=== PATIENT | female | born 1990 | race Caucasian/White ===

== ENCOUNTER 2016-07-23 15:17 | Emergency (ER) | payer BC, OTHER ==
[~2016-07-23 15:17] MED LIST: IBUP80TA PO; PERCOCET PO; VITAPRTA PO
--- NOTE | 2016-07-23 16:05 | REP ---
Left shoulder three views: There is no fracture or dislocation. Mineralization joint spaces are normal. No calcifications or foreign bodies. Clothing artifacts are incidentally noted. Impression: Negative left shoulder. Signed by Willy Colorado MD 07/23/2016 03:57 P
--- NOTE | 2016-07-23 16:08 | REP ---
Left humerus two views : There is no fracture or dislocation. Mineralization and joint spaces are normal. There are no calcifications or foreign bodies. Impression: Negative left humerus . Signed by Willy Colorado MD 07/23/2016 03:58 P
--- NOTE | 2016-07-23 17:07 | EDDOCDS ---
Nurse's Notes [facility] Name: Areli Lynch Age: 25 yrs Sex: Female : 1990 Arrival Date: 07/23/2016 Time: 15:17 Bed 30 Private MD: Ana Rm Diagnosis: Contusion of left shoulder Presentation: 07/23 15:32 Presenting complaint: Patient states: Pt fell this morning on the ice and hurt her left lf1 shoulder. Pain is currently 7/10. Pt. is able to move her arm but reports increased pain with movement. Positive radial pulse. No LOC, no head injury. Adult Sepsis Screening: The patient does not have new or worsening altered mentation. Patient's respiratory rate is less than 22. Systolic blood pressure is greater than 100. Patient has a qSOFA score of 0- Negative Sepsis Screen. Suicide/Homicide risk assessment- the patient denies having any suicidal and/or homicidal ideations and does not present with any other emotional, behavioral or mental health complaints. Status: Patient is not a online services manager or dependent. Transition of care: patient was not received from another setting of care. 15:32 Acuity: NICHELLE Level 4 lf1 15:32 Method Of Arrival: Walkin/Carried/Asstd lf1 Triage Assessment: 15:36 General: Appears in no apparent distress, comfortable, Behavior is cooperative. Pain: lf1 Location: left arm and shoulder Pain currently is 7 out of 10 on a pain scale. Quality of pain is described as burning. HIV screening NA for this visit Offered previously. Neurological: Level of Consciousness is awake, alert, Oriented to person, place, time. EENT: No deficits noted. Cardiovascular: Chest pain is denied. Respiratory: Respiratory effort is even, unlabored. GI: Denies nausea, vomiting. : No deficits noted. Musculoskeletal: Reports pain in left shoulder and arm. Injury Description: pt fell. 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 Tylenol 500 mg Oral 2 tabs (Last dose: 07/23/2016 14:00) - PMHx: none; - PSHx: Cesearean Section; - Social history: Smoking status: Patient states was never smoker of tobacco. No barriers to communication noted, The patient speaks fluent Malawian, Speaks appropriately for age, Preferred Language: Malawian. - Family history: Not pertinent. - : The pt / caregiver states he / she is not on anticoagulants. Home medication list is obtained from the patient. - Exposure Risk Screening:: None identified. Screenin:38 Screening information is obtained from the patient. Fall risk: No risks identified. lf1 Assistance ADL's: requires no assistance with activities of daily living. Abuse/DV Screen: The patient / caregiver reports he/she is: not in a situation that causes fear, pain or injury. Nutritional screening: No deficits noted. Advance Directives: Currently, there is no health care proxy. There is no active DNR order. There is no living will. home support is adequate. Assessment: 17:06 General: Appears in no apparent distress, comfortable, Behavior is cooperative. kr3 Neurological: Level of Consciousness is awake, alert. Respiratory: Respiratory effort is even, unlabored. Musculoskeletal: Range of motion limited in left shoulder. Vital Signs: 15:18 BP 127 / 76; Pulse 80; Resp 16; Temp 97.1(O); Pulse Ox 100% ; Weight 61.23 kg; Height 5 cmb ft. 1 in. (154.94 cm); Pain 7/10; 17:04 BP 113 / 59; Pulse 68; Resp 18; Temp 99.1(TE); Pulse Ox 97% on R/A; Pain 7/10; mdr 15:18 Body Mass Index 25.51 (61.23 kg, 154.94 cm) cmb Vitals: 15:18 Log In Time: July 23, 2016 at 15:17. cmb ED Course: 15:18 Patient visited by Dimple Leslie. cmb 15:18 NO PRIMARY PHYSICIAN, . is Private Physician. cmb 15:18 Ana Rm is Private Physician. cmb 15:18 Patient moved to Waiting cmb 15:19 Patient moved to Pre RCE cmb 15:35 Triage Initiated lf1 16:39 Patient moved to 30 kr3 16:40 Taylor Prince MD is Attending Physician. sd1 16:40 Patient visited by Taylor Prince MD. sd1 16:44 Shoulder, Complete Returned. EDMS 16:44 Humerus Returned. EDMS 16:46 Ana Rm is Referral Physician. sd1 17:05 Patient visited by Samson Dinero PCA. mdr 17:05 The patient / caregiver is instructed regarding the plan of care and ED course. Patient kr3 has correct armband on for positive identification. 17:05 No IV's were initiated during this patient's visit. No procedures done that require kr3 assistance. Sling applied to left arm. Patient with positive distal sensation and brisk distal capillary refill after application. Order Results: Radiology Order: Shoulder, Complete Test: Shoulder, Complete REASON FOR EXAMINATION: Trauma; Left shoulder three views:; ; There is no fracture or dislocation. Mineralization joint spaces are normal. No; calcifications or foreign bodies. Clothing artifacts are incidentally noted.; ; Impression:; ; Negative left shoulder.; ; ; Signed by; Willy Colorado MD 07/23/2016 03:57 P; Radiology Order: Humerus Test: Humerus REASON FOR EXAMINATION: Trauma; Left humerus two views :; ; There is no fracture or dislocation.; ; Mineralization and joint spaces are normal.; ; There are no calcifications or foreign bodies.; ; Impression:; ; Negative left humerus .; ; ; Signed by; Willy Colorado MD 07/23/2016 03:58 P; Outcome: 16:46 Discharge ordered by Provider. sd1 17:05 Discharge Assessment: patient administered narcotics - no. The following High Risk kr3 Discharge criteria are identified: None. Discharged to home ambulatory. Condition: stable. Discharge instructions given to patient, Instructed on discharge instructions, follow up and referral plans. Demonstrated understanding of instructions, Pt was receptive of discharge instructions/ teaching. No special radiology studies were completed. Property sent home with patient. 17:06 Patient left the ED. kr3 Signatures: Dispatcher [employer] EDMS Taylor Prince MD MD sd1 Lianne MeloRN RN kr3 Edel Motley RN RN lf1 Dimple Leslie cmb Samson Dinero PCA APPLICATION DESIGN ENGINEER mdr Corrections: (The following items were deleted from the chart) 15:38 15:32 Presenting complaint: Patient states: Pt fell this morning on the ice and hurt lf1 her left shoulder. Pain is currently 7/10. Pt. is able to move her arm but reports increased pain with movement. Positive radial pulse lf1 MTDD
--- NOTE | 2016-07-23 17:07 | EDDOCDS ---
Physician Documentation [facility] Name: Areli Lynch Age: 25 yrs Sex: Female : 1990 Arrival Date: 07/23/2016 Time: 15:17 Bed 30 Private MD: Ana Rm Disposition: 07/23/16 16:46 Discharged to Home/Self Care. Impression: Contusion of left shoulder. - Condition is Stable. - Discharge Instructions: Shoulder Pain, Shoulder Pain, [id number]. - Medication Reconciliation, Local Pharmacy Hours form. - Follow up: Ana Rm; When: 1 week. - Problem is new. - Symptoms are unchanged. - Notes: ROM exercises of left shoulder Historical: - Allergies: Ceftin (Hives, Swelling); Trimox (Hives, Swelling); PENICILLINS (Hives, Swelling); - Home Meds: 1. Tylenol 500 mg Oral 2 tabs (Last dose: 07/23/2016 14:00) - PMHx: none; - PSHx: Cesearean Section; - Social history: Smoking status: Patient states was never smoker of tobacco. No barriers to communication noted, The patient speaks fluent Russian, Speaks appropriately for age, Preferred Language: Russian. - Family history: Not pertinent. - : The pt / caregiver states he / she is not on anticoagulants. Home medication list is obtained from the patient. - Exposure Risk Screening:: None identified. 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 1 in. (154.94 cm); Pain 7/10; 17:04 BP 113 / 59; Pulse 68; Resp 18; Temp 99.1(TE); Pulse Ox 97% on R/A; Pain 7/10; mdr 15:18 Body Mass Index 25.51 (61.23 kg, 154.94 cm) cmb MDM: 15:44 Shoulder, Complete Ordered. EDMS 15:44 Humerus Ordered. EDMS 16:45 Sling ordered. sd1 Signatures: Dispatcher [employer] EDTaylor Andrews MD MD sd1 Lianne Melo,RN RN kr3 Edel Motley RN RN lf1 VINAYD
--- NOTE | 2016-07-25 18:07 | EDDOCDS ---
Physician Documentation [facility] Name: Areli Lynch Age: 25 yrs Sex: Female : 1990 Arrival Date: 07/23/2016 Time: 15:17 Bed 30 Private MD: Ana Rm Disposition: 07/23/16 16:46 Discharged to Home/Self Care. Impression: Contusion of left shoulder. - Condition is Stable. - Discharge Instructions: Shoulder Pain, Shoulder Pain, [id number]. - Medication Reconciliation, Local Pharmacy Hours form. - Follow up: Ana Rm; When: 1 week. - Problem is new. - Symptoms are unchanged. - Notes: ROM exercises of left shoulder Historical: - Allergies: Ceftin (Hives, Swelling); Trimox (Hives, Swelling); PENICILLINS (Hives, Swelling); - Home Meds: 1. Tylenol 500 mg Oral 2 tabs (Last dose: 07/23/2016 14:00) - PMHx: none; - PSHx: Cesearean Section; - Social history: Smoking status: Patient states was never smoker of tobacco. No barriers to communication noted, The patient speaks fluent Swazi, Speaks appropriately for age, Preferred Language: Swazi. - Family history: Not pertinent. - : The pt / caregiver states he / she is not on anticoagulants. Home medication list is obtained from the patient. - Exposure Risk Screening:: None identified. 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 1 in. (154.94 cm); Pain 7/10; 17:04 BP 113 / 59; Pulse 68; Resp 18; Temp 99.1(TE); Pulse Ox 97% on R/A; Pain 7/10; mdr 15:18 Body Mass Index 25.51 (61.23 kg, 154.94 cm) cmb MDM: 15:44 Shoulder, Complete Ordered. EDMS 15:44 Humerus Ordered. EDMS 16:45 Sling ordered. sd1 07/24 10:31 T-Sheet-- Draft Copy was scanned into [employer] and attached to record. gb Signatures: Dispatcher [employer] Taylor Faria MD MD sd1 Danyelle Rey Reg Reg gb Robie, Kathleen,RN RN kr3 Edel MotleyRN RN lf1 The chart was reviewed and I authenticate all verbal orders and agree with the evaluation and treatment provided.Attachments: 10:31 T-Sheet-- Draft Copy gb Chart Complete MTDD
--- NOTE | 2016-07-25 18:07 | EDDOCDS ---
Physician Documentation [facility] Name: Areli Lynch Age: 25 yrs Sex: Female : 1990 Arrival Date: 07/23/2016 Time: 15:17 Bed 30 Private MD: Ana Rm Disposition: 07/23/16 16:46 Discharged to Home/Self Care. Impression: Contusion of left shoulder. - Condition is Stable. - Discharge Instructions: Shoulder Pain, Shoulder Pain, [id number]. - Medication Reconciliation, Local Pharmacy Hours form. - Follow up: Ana Rm; When: 1 week. - Problem is new. - Symptoms are unchanged. - Notes: ROM exercises of left shoulder Historical: - Allergies: Ceftin (Hives, Swelling); Trimox (Hives, Swelling); PENICILLINS (Hives, Swelling); - Home Meds: 1. Tylenol 500 mg Oral 2 tabs (Last dose: 07/23/2016 14:00) - PMHx: none; - PSHx: Cesearean Section; - Social history: Smoking status: Patient states was never smoker of tobacco. No barriers to communication noted, The patient speaks fluent Brazilian, Speaks appropriately for age, Preferred Language: Brazilian. - Family history: Not pertinent. - : The pt / caregiver states he / she is not on anticoagulants. Home medication list is obtained from the patient. - Exposure Risk Screening:: None identified. 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 1 in. (154.94 cm); Pain 7/10; 17:04 BP 113 / 59; Pulse 68; Resp 18; Temp 99.1(TE); Pulse Ox 97% on R/A; Pain 7/10; mdr 15:18 Body Mass Index 25.51 (61.23 kg, 154.94 cm) cmb MDM: 15:44 Shoulder, Complete Ordered. EDMS 15:44 Humerus Ordered. EDMS 16:45 Sling ordered. sd1 07/24 10:31 T-Sheet-- Draft Copy was scanned into [employer] and attached to record. gb Signatures: Dispatcher [employer] Taylor Faria MD MD sd1 Danyelle Rey Reg Reg gb Robie, Kathleen,RN RN kr3 Edel MotleyRN RN lf1 The chart was reviewed and I authenticate all verbal orders and agree with the evaluation and treatment provided.Attachments: 10:31 T-Sheet-- Draft Copy gb Chart Complete MTDD
--- NOTE | 2016-07-25 18:08 | EDDOCDS ---
Nurse's Notes [facility] Name: Areli Lynch Age: 25 yrs Sex: Female : 1990 Arrival Date: 07/23/2016 Time: 15:17 Bed 30 Private MD: Ana Rm Diagnosis: Contusion of left shoulder Presentation: 07/23 15:32 Presenting complaint: Patient states: Pt fell this morning on the ice and hurt her left lf1 shoulder. Pain is currently 7/10. Pt. is able to move her arm but reports increased pain with movement. Positive radial pulse. No LOC, no head injury. Adult Sepsis Screening: The patient does not have new or worsening altered mentation. Patient's respiratory rate is less than 22. Systolic blood pressure is greater than 100. Patient has a qSOFA score of 0- Negative Sepsis Screen. Suicide/Homicide risk assessment- the patient denies having any suicidal and/or homicidal ideations and does not present with any other emotional, behavioral or mental health complaints. Status: Patient is not a answering service operator or dependent. Transition of care: patient was not received from another setting of care. 15:32 Acuity: NICHELLE Level 4 lf1 15:32 Method Of Arrival: Walkin/Carried/Asstd lf1 Triage Assessment: 15:36 General: Appears in no apparent distress, comfortable, Behavior is cooperative. Pain: lf1 Location: left arm and shoulder Pain currently is 7 out of 10 on a pain scale. Quality of pain is described as burning. HIV screening NA for this visit Offered previously. Neurological: Level of Consciousness is awake, alert, Oriented to person, place, time. EENT: No deficits noted. Cardiovascular: Chest pain is denied. Respiratory: Respiratory effort is even, unlabored. GI: Denies nausea, vomiting. : No deficits noted. Musculoskeletal: Reports pain in left shoulder and arm. Injury Description: pt fell. 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 Tylenol 500 mg Oral 2 tabs (Last dose: 07/23/2016 14:00) - PMHx: none; - PSHx: Cesearean Section; - Social history: Smoking status: Patient states was never smoker of tobacco. No barriers to communication noted, The patient speaks fluent Cook Islander, Speaks appropriately for age, Preferred Language: Cook Islander. - Family history: Not pertinent. - : The pt / caregiver states he / she is not on anticoagulants. Home medication list is obtained from the patient. - Exposure Risk Screening:: None identified. Screenin:38 Screening information is obtained from the patient. Fall risk: No risks identified. lf1 Assistance ADL's: requires no assistance with activities of daily living. Abuse/DV Screen: The patient / caregiver reports he/she is: not in a situation that causes fear, pain or injury. Nutritional screening: No deficits noted. Advance Directives: Currently, there is no health care proxy. There is no active DNR order. There is no living will. home support is adequate. Assessment: 17:06 General: Appears in no apparent distress, comfortable, Behavior is cooperative. kr3 Neurological: Level of Consciousness is awake, alert. Respiratory: Respiratory effort is even, unlabored. Musculoskeletal: Range of motion limited in left shoulder. Vital Signs: 15:18 BP 127 / 76; Pulse 80; Resp 16; Temp 97.1(O); Pulse Ox 100% ; Weight 61.23 kg; Height 5 cmb ft. 1 in. (154.94 cm); Pain 7/10; 17:04 BP 113 / 59; Pulse 68; Resp 18; Temp 99.1(TE); Pulse Ox 97% on R/A; Pain 7/10; mdr 15:18 Body Mass Index 25.51 (61.23 kg, 154.94 cm) cmb Vitals: 15:18 Log In Time: July 23, 2016 at 15:17. cmb ED Course: 15:18 Patient visited by Dimple Leslie. cmb 15:18 NO PRIMARY PHYSICIAN, . is Private Physician. cmb 15:18 Ana Rm is Private Physician. cmb 15:18 Patient moved to Waiting cmb 15:19 Patient moved to Pre RCE cmb 15:35 Triage Initiated lf1 16:39 Patient moved to 30 kr3 16:40 Taylor Prince MD is Attending Physician. sd1 16:40 Patient visited by Taylor Prince MD. sd1 16:44 Shoulder, Complete Returned. EDMS 16:44 Humerus Returned. EDMS 16:46 Ana Rm is Referral Physician. sd1 17:05 Patient visited by Samson Dinero PCA. mdr 17:05 The patient / caregiver is instructed regarding the plan of care and ED course. Patient arely has correct armband on for positive identification. 17:05 No IV's were initiated during this patient's visit. No procedures done that require kr3 assistance. Sling applied to left arm. Patient with positive distal sensation and brisk distal capillary refill after application. 07/24 10:31 T-Sheet-- Draft Copy was scanned into [employer] and attached to record. gb Order Results: Radiology Order: Shoulder, Complete Test: Shoulder, Complete REASON FOR EXAMINATION: Trauma; Left shoulder three views:; ; There is no fracture or dislocation. Mineralization joint spaces are normal. No; calcifications or foreign bodies. Clothing artifacts are incidentally noted.; ; Impression:; ; Negative left shoulder.; ; ; Signed by; Willy Colorado MD 07/23/2016 03:57 P; Radiology Order: Humerus Test: Humerus REASON FOR EXAMINATION: Trauma; Left humerus two views :; ; There is no fracture or dislocation.; ; Mineralization and joint spaces are normal.; ; There are no calcifications or foreign bodies.; ; Impression:; ; Negative left humerus .; ; ; Signed by; Willy Colorado MD 07/23/2016 03:58 P; Outcome: 07/23 16:46 Discharge ordered by Provider. sd1 17:05 Discharge Assessment: patient administered narcotics - no. The following High Risk kr3 Discharge criteria are identified: None. Discharged to home ambulatory. Condition: stable. Discharge instructions given to patient, Instructed on discharge instructions, follow up and referral plans. Demonstrated understanding of instructions, Pt was receptive of discharge instructions/ teaching. No special radiology studies were completed. Property sent home with patient. 17:06 Patient left the ED. kr3 Signatures: [facility] Taylor Prince MD MD sd1 Danyelle Rey, Reg Reg gb Lianne Melo RN RN [email or web address] Edel Motley RN RN [email or web address] Dimple Leslie cmb Samson Dinero PCA DINKEY LOCOMOTIVE ENGINEER mdr Corrections: (The following items were deleted from the chart) 15:38 15:32 Presenting complaint: Patient states: Pt fell this morning on the ice and hurt lf1 her left shoulder. Pain is currently 01/06. Pt. is able to move her arm but reports increased pain with movement. Positive radial pulse lf1 Chart Complete MTDD
== END 2016-07-23 17:06 | disposition home or self-care (01) ==
LOC: M ED 15:17
DX: S40.012A Contusion of left shoulder, initial encounter (principal); W00.0XXA Fall on same level due to ice and snow, initial encounter; Y92.89 Other specified places as the place of occurrence of the external cause; Y93.89 Activity, other specified; Y99.8 Other external cause status; Z88.1 Allergy status to other antibiotic agents; Z88.0 Allergy status to penicillin

== ENCOUNTER → 2016-10-02 | Outpatient (CLI) | payer BC, OTHER ==
[2016-10-02 19:24] LABS: BASO % 0.3 % (0.0-1.0); EOS # 0.1 K/mm3 (0.0-0.50); EOS % 0.5 % (0.0-3.0); LARGE UNSTAINED CELL # 0.2 K/mm3 (0.0-0.4); LARGE UNSTAINED CELL % 1.5 % (0.0-4.0); LYMPH # 3.1 K/mm3 (1.5-6.5); LYMPH % 19.8 % (24.0-44.0); MEAN CORPUSCULAR HEMOGLOBIN 29.7 pg (27.0-33.0); MEAN CORPUSCULAR HGB CONC 33.7 g/dl (32.0-36.5); MEAN CORPUSCULAR VOLUME 88.2 fl (80.0-96.0); MONO # 0.6 K/mm3 (0.0-0.8); MONO % 3.9 % (0.0-5.0); NEUTROPHILS # 10.9 K/mm3 (1.8-7.7); NEUTROPHILS % 74.1 % (36.0-66.0); PLATELET COUNT, AUTOMATED 316 k/mm3 (150-450); RED CELL DISTRIBUTION WIDTH 12.6 % (11.5-14.5); WHITE BLOOD COUNT 14.7 K/mm3 (4.0-10.0)
[2016-10-04 10:38] LABS: HBsAg Prenatal NEGATIVE (NEGATIVE)
== END ==
LOC: M SMT 15:24
PROVIDERS: ATTEND Advanced Practice Midwife
DX: Z34.81 Encounter for supervision of other normal pregnancy, first trimester (principal)

== ENCOUNTER → 2016-10-24 | Outpatient (REF) | payer OTHER | LOC: M LAB REF 09:32 | PROVIDERS: ATTEND Physician Assistant | DX: N39.0 Urinary tract infection, site not specified (principal) ==

== ENCOUNTER → 2016-11-11 | Outpatient (REF) | payer OTHER | LOC: M LAB REF 12:33 | PROVIDERS: ATTEND Advanced Practice Midwife | DX: R30.0 Dysuria (principal) ==

== ENCOUNTER → 2016-12-18 | Outpatient (CLI) | payer OTHER ==
--- NOTE | 2016-12-19 05:08 | REP ---
Clinical: Anatomical evaluation. Comparison: None . Findings: Examination demonstrates a single live intrauterine in cephalic presentation. motion is identified by technologist. Placenta is noted posteriorly and grade zero without evidence for placenta previa or abruption. Amniotic fluid volume is normal. Cervix measures 3.1 cm in length and appears closed. Nuchal cord cannot be excluded. Gestational age by LMP 19 weeks 0 days with PITO 05/14/1969 . Gestational age by current measurements 18 weeks 2-day with PITO 05/19/2017 . FHR equals 147 beats per minute. BPD 3.9 cm 18 weeks 0 days HC 15.4 cm 18 weeks 3 days AC 12.6 cm 18 weeks 2 days FL 2.9 cm 18 weeks 6 day HL 2.7 cm 18 weeks 4-day HC/AC ratio 1.22 Estimated weight 243 grams ( 29th percentile). Anatomical assessment demonstrates normal structures including cranium, choroid plexus, cavum, cerebellum/posterior fossa, facial features, lungs, four-chamber heart/ventricular outflow tracts, diaphragm, stomach, cord insertion/three-vessel cord, kidneys/bladder, spine, and extremities. Impression: 1. Single live intrauterine in cephalic presentation demonstrating appropriate interval growth. Anatomical assessment is complete and normal. 2. No gross abnormalities are identified. 3. Nuchal cord cannot be excluded. Signed by Devyn Navarro MD 12/19/2016 05:00 A
== END ==
LOC: M RAD 10:14
PROVIDERS: ATTEND Obstetrics & Gynecology
DX: Z36 Encounter for antenatal screening of mother (principal); Z3A.18 18 weeks gestation of pregnancy

== ENCOUNTER → 2017-02-25 | Outpatient (CLI) | payer OTHER ==
[~2017-02-25] MED LIST changes: +COLA100C5 PO; +IBUP1TAB7 PO
[2017-02-25 14:17] LABS: BASO % 0.1 % (0.0-1.0); EOS # 0.1 K/mm3 (0.0-0.50); EOS % 0.6 % (0.0-3.0); LARGE UNSTAINED CELL # 0.2 K/mm3 (0.0-0.4); LARGE UNSTAINED CELL % 1.7 % (0.0-4.0); LYMPH # 1.7 K/mm3 (1.5-6.5); LYMPH % 15.8 % (24.0-44.0); MEAN CORPUSCULAR HEMOGLOBIN 31.5 pg (27.0-33.0); MEAN CORPUSCULAR HGB CONC 34.3 g/dl (32.0-36.5); MEAN CORPUSCULAR VOLUME 91.9 fl (80.0-96.0); MONO # 0.3 K/mm3 (0.0-0.8); MONO % 3.1 % (0.0-5.0); NEUTROPHILS # 8.7 K/mm3 (1.8-7.7); NEUTROPHILS % 78.8 % (36.0-66.0); PLATELET COUNT, AUTOMATED 280 k/mm3 (150-450); RED CELL DISTRIBUTION WIDTH 12.9 % (11.5-14.5)
== END ==
LOC: M LAB 12:05
PROVIDERS: ATTEND Advanced Practice Midwife
DX: Z34.83 Encounter for supervision of other normal pregnancy, third trimester (principal)

== ENCOUNTER → 2017-03-04 | Outpatient (CLI) | payer OTHER, SELFPAY | LOC: M LAB 07:57 | PROVIDERS: ATTEND Obstetrics & Gynecology | DX: R73.01 Impaired fasting glucose (principal) ==

== ENCOUNTER → 2017-04-18 | Outpatient (REF) | payer OTHER | LOC: M LAB REF 17:00 | PROVIDERS: ATTEND Obstetrics & Gynecology | DX: Z34.83 Encounter for supervision of other normal pregnancy, third trimester (principal) ==

== ENCOUNTER 2017-05-07 05:31 | Inpatient (IN) | payer OTHER ==
[~2017-05-07] VITALS: Ht 154.9 cm; Wt 73.0 kg
[~2017-05-07 05:31] MED LIST changes: -COLA100C5 PO; -IBUP1TAB7 PO
[2017-05-07] MEDS ORDERED: BICITRA 30ML SOLN UDC PO ONE (06:30)
[2017-05-07] MEDS ORDERED: LR 1,000 ML IV SCH (06:30)
[2017-05-07] MEDS ORDERED: GENTAMICIN 120 MG in D5W 50 ML IV ONE (06:30)
[2017-05-07] MEDS ORDERED: CLINDAMYCIN 900 MG in APPROPRIATE DILUENT 1 EA IV ONE (06:30)
[2017-05-07] MEDS ORDERED: LR 1,000 ML IV ONE (06:30)
[2017-05-07 06:38] LABS: MEAN CORPUSCULAR HEMOGLOBIN 27.4 pg (27.0-33.0); MEAN CORPUSCULAR HGB CONC 32.1 g/dl (32.0-36.5); MEAN CORPUSCULAR VOLUME 85.3 fl (80.0-96.0); PLATELET COUNT, AUTOMATED 270 10^3/uL (150-450); RED CELL DISTRIBUTION WIDTH 13.9 % (11.5-14.5); WHITE BLOOD COUNT 10.9 10^3/uL (4.0-10.0)
[2017-05-07] MEDS ORDERED: MORPHINE PRES-FREE INJ 10 MG/10 ML VIAL (J2274) As Ordered ONE (08:17)
[2017-05-07] MEDS ORDERED: OXYTOCIN INJ 10 UNITS/ML VIAL (J2590) As Ordered ONE (08:17)
[2017-05-07] MEDS ORDERED: ONDANSETRON 4MG/2ML VIAL (J2405) As Ordered ONE (08:17)
[2017-05-07] MEDS ORDERED: KETOROLAC 60 MG/2 ML VIAL (J1885) As Ordered ONE (08:17)
[2017-05-07] MEDS: LR 1,000 ML IV SCH ×2 (08:46→17:00)
[2017-05-07] MEDS ORDERED: PERCOCET PO (08:49)
[2017-05-07] MEDS ORDERED: IBUP1TAB7 PO (08:51)
[2017-05-07] MEDS ORDERED: COLA100C5 PO (08:53)
[2017-05-07] MEDS: PRENATAL VITAMINS CHEWABLE TABLET PO SCH (09:00)
[2017-05-07] MEDS ORDERED: RHOGAM 300 MCG (1500 IU) INJ (J2790) IM SCH (09:00)
[2017-05-07] MEDS ORDERED: OXYTOCIN DRIP 30 UNITS in APPROPRIATE DILUENT 1 EA IV ONE (09:00)
[2017-05-07] MEDS ORDERED: ONDANSETRON 4MG/2ML VIAL (J2405) IV PRN ×2 (09:00→09:30)
[2017-05-07] MEDS ORDERED: MOM 30ML SUSPENSION UDC PO PRN (09:00)
[2017-05-07] MEDS: DOCUSATE SODIUM 100 MG CAP PO SCH ×2 (09:00→19:54)
[2017-05-07] MEDS ORDERED: MEASLES,MUMPS,RUBELLA VACCINE INJ (MMR-II) (90707) SC SCH (09:00)
[2017-05-07] MEDS ORDERED: NALBUPHINE HCL 10 MG/ML AMP (J2300) IV PRN (09:30)
[2017-05-07] MEDS ORDERED: fentaNYL 100 MCG/2 ML INJECTION (J3010) IV PRN (09:30)
[2017-05-07] MEDS: PERCOCET 5MG/325MG TAB PO PRN ×4 (10:09→23:25)
[2017-05-07 10:30] VITALS: BP 130/65
[2017-05-07 11:00] VITALS: BP 125/67
[2017-05-07 12:00] VITALS: BP 120/65
[2017-05-07 13:00] VITALS: BP 113/59
[2017-05-07] MEDS: KETOROLAC 30 MG/ML VIAL (J1885) IV SCH ×2 (13:56→19:54)
[2017-05-07 18:00] VITALS: BP 119/69
[2017-05-07 22:00] VITALS: BP 108/58
[2017-05-08] MEDS: LR 1,000 ML IV SCH ×2 (00:46→08:46)
[2017-05-08] MEDS: PERCOCET 5MG/325MG TAB PO PRN ×5 (01:47→19:49)
[2017-05-08] MEDS: KETOROLAC 30 MG/ML VIAL (J1885) IV SCH ×2 (01:48→07:53)
[2017-05-08 02:00] VITALS: BP 113/61
[2017-05-08 06:00] VITALS: BP 114/65
[2017-05-08 07:08] LABS: MEAN CORPUSCULAR HEMOGLOBIN 27.2 pg (27.0-33.0); MEAN CORPUSCULAR HGB CONC 31.5 g/dl (32.0-36.5); MEAN CORPUSCULAR VOLUME 86.1 fl (80.0-96.0); PLATELET COUNT, AUTOMATED 187 10^3/uL (150-450); RED CELL DISTRIBUTION WIDTH 14.4 % (11.5-14.5); WHITE BLOOD COUNT 12.2 10^3/uL (4.0-10.0)
[2017-05-08] MEDS: PRENATAL VITAMINS CHEWABLE TABLET PO SCH (07:53)
[2017-05-08] MEDS: DOCUSATE SODIUM 100 MG CAP PO SCH ×2 (07:53→19:49)
[2017-05-08 10:55] VITALS: BP 118/70
[2017-05-08 14:25] VITALS: BP 125/68
[2017-05-08] MEDS: IBUPROFEN 800 MG TAB PO SCH (16:32)
[2017-05-08 17:58] VITALS: BP 129/69
[2017-05-08 22:00] VITALS: BP 121/72
[2017-05-08] MEDS: SIMETHICONE 80 MG CHEW TAB PO SCH (23:04)
[2017-05-09] MEDS: PERCOCET 5MG/325MG TAB PO PRN ×2 (00:26→04:46)
[2017-05-09] MEDS: IBUPROFEN 800 MG TAB PO SCH ×2 (00:26→07:16)
[2017-05-09 02:00] VITALS: BP 119/69
[2017-05-09 06:00] VITALS: BP 123/78
[2017-05-09] MEDS: DOCUSATE SODIUM 100 MG CAP PO SCH (07:16)
[2017-05-09] MEDS: SIMETHICONE 80 MG CHEW TAB PO SCH (07:17)
[2017-05-09] MEDS: PRENATAL VITAMINS CHEWABLE TABLET PO SCH (07:17)
--- NOTE | 2017-05-10 03:18 | DSES ---
DATE OF ADMISSION: 05/07/2017 DATE OF DISCHARGE: 05/09/2017 HISTORY: 26-year-old (G) 2, para (P) 1 female at 39-1/7 weeks gestation presents for elective repeat section. She has a history of one prior section. HOSPITAL COURSE: On 05/07/2017, the patient underwent elective repeat low transverse section for a 6 pound 14 ounce male . There were no complications. Her postoperative course was unremarkable. She had adequate return of bladder and bowel function. She was deemed stable for discharge on postoperative day #2. ADMISSION DIAGNOSIS: term, prior (C) section. DISCHARGE DIAGNOSIS: Delivered. PROCEDURE: Repeat low transverse section. DISPOSITION: The patient will followup with [facility] in 2 weeks. Instructions were reviewed.
== END 2017-05-09 11:15 | disposition home or self-care (01) | DRG 540 ==
LOC: M LDI 05:31 → M OBS 10:37
PROVIDERS: ADMIT Obstetrics & Gynecology; ATTEND Obstetrics & Gynecology
PROC: 10D00Z1 Extraction of Products of Conception, Low, Open Approach (ICD-10-PCS; principal; 2017-05-07 07:30)
DX: O34.211 Maternal care for low transverse scar from previous cesarean delivery (principal); Z37.0 Single live birth; Z3A.39 39 weeks gestation of pregnancy

== ENCOUNTER → 2018-10-17 | Outpatient (REF) | payer OTHER ==
[~2018-10-17] MED LIST changes: +COLA100C5 PO; +IBUP1TAB7 PO
== END ==
LOC: M LAB REF 08:32
PROVIDERS: ATTEND Physician Assistant
DX: J02.9 Acute pharyngitis, unspecified (principal)

== ENCOUNTER → 2019-04-14 | Outpatient (REF) | payer OTHER ==
[2019-04-14 19:36] LABS: APPEARANCE, URINE CLEAR (CLEAR); BACTERIA, URINE AUTO NEGATIVE (NEGATIVE); BILIRUBIN, URINE AUTO NEGATIVE (NEGATIVE); BLOOD, URINE BLOOD NEGATIVE (NEGATIVE); COLOR, URINE YELLOW (YELLOW); GLUCOSE, URINE (UA) AUTO NEGATIVE (NEGATIVE); KETONE, URINE AUTO 1+ mg/dL (NEGATIVE); LEUKOCYTE ESTERASE, URINE AUTO TRACE (NEGATIVE); NITRITE, URINE AUTO NEGATIVE (NEGATIVE); PROTEIN, URINE AUTO NEGATIVE (NEGATIVE); RBC, URINE AUTO 0 /HPF (0-3); SPECIFIC GRAVITY URINE AUTO 1.025 (1.002-1.035); SQUAMOUS EPITHELIAL CELL UR AU 7 /HPF (0-6); UROBILINOGEN, URINE AUTO 0.2 mg/dL (0.0-2.0); WBC, URINE AUTO 0 /HPF (0-3)
== END ==
LOC: M LAB REF 10:35
PROVIDERS: ATTEND Physician Assistant Medical
DX: N39.0 Urinary tract infection, site not specified (principal)

== ENCOUNTER 2019-05-08 09:04 | Emergency (ER) | payer OTHER ==
[~2019-05-08] VITALS: Ht 154.9 cm; Wt 66.2 kg
[2019-05-08] MEDS ORDERED: OMEP-218 PO (09:10)
[2019-05-08] MEDS ORDERED: CLIN300C5 PO (09:10)
[2019-05-08] MEDS ORDERED: CLINDAMYCIN 900 MG in IV 1 EA IV ONE (09:30)
[2019-05-08 09:50] LABS: BASO % 0.2 % (0.0-1.0); EOS % 0.1 % (0.0-3.0); HEMATOCRIT 38.5 % (36.0-47.0); HEMOGLOBIN 12.5 g/dl (12.0-15.5); LYMPH # 2.3 10^3/uL (1.5-5.0); LYMPH % 16.1 % (24.0-44.0); MEAN CORPUSCULAR HEMOGLOBIN 29.3 pg (27.0-33.0); MEAN CORPUSCULAR HGB CONC 32.5 g/dl (32.0-36.5); MEAN CORPUSCULAR VOLUME 90.2 fl (80.0-96.0); MONO # 0.8 10^3/uL (0.0-0.8); MONO % 5.7 % (0.0-5.0); NEUTROPHILS # 10.8 10^3/uL (1.5-8.5); NEUTROPHILS % 77.5 % (36.0-66.0); PLATELET COUNT, AUTOMATED 273 10^3/uL (150-450); RED BLOOD COUNT 4.27 10^6/uL (4.00-5.40)
[2019-05-08] MEDS ORDERED: CLEO300C2 PO (10:18)
[2019-05-08 10:37] VITALS: BP 117/78
== END 2019-05-08 10:59 | disposition home or self-care (01) ==
LOC: M ED 09:04
DX: K04.7 Periapical abscess without sinus (principal); F33.9 Major depressive disorder, recurrent, unspecified; F41.9 Anxiety disorder, unspecified; Z79.899 Other long term (current) drug therapy; Z88.0 Allergy status to penicillin; Z88.1 Allergy status to other antibiotic agents

== ENCOUNTER 2019-05-10 14:38 | Emergency (ER) | payer OTHER ==
[~2019-05-10] VITALS: Ht 154.9 cm; Wt 67.4 kg
[~2019-05-10 14:38] MED LIST changes: +CLEO300C2 PO; +CLIN300C5 PO; +OMEP-218 PO
[2019-05-10] MEDS ORDERED: tylenol (14:44)
[2019-05-10] MEDS ORDERED: IBUP80TA (14:44)
[2019-05-10] MEDS ORDERED: NORCO, ANEXSIA 5/325MG TABLET (HYDROcodone/ACETAMINOPHEN) PO ONE (15:30)
[2019-05-10 15:47] LABS: BASO % 0.2 % (0.0-1.0); EOS # 0.1 10^3/uL (0.0-0.5); EOS % 0.5 % (0.0-3.0); HEMATOCRIT 34.6 % (36.0-47.0); HEMOGLOBIN 11.5 g/dl (12.0-15.5); LYMPH # 2.4 10^3/uL (1.5-5.0); LYMPH % 18.4 % (24.0-44.0); MEAN CORPUSCULAR HEMOGLOBIN 29.8 pg (27.0-33.0); MEAN CORPUSCULAR HGB CONC 33.2 g/dl (32.0-36.5); MEAN CORPUSCULAR VOLUME 89.6 fl (80.0-96.0); MONO # 0.7 10^3/uL (0.0-0.8); MONO % 5.1 % (0.0-5.0); NEUTROPHILS # 9.7 10^3/uL (1.5-8.5); NEUTROPHILS % 75.6 % (36.0-66.0); PLATELET COUNT, AUTOMATED 316 10^3/uL (150-450); RED BLOOD COUNT 3.86 10^6/uL (4.00-5.40); WHITE BLOOD COUNT 12.8 10^3/uL (4.0-10.0)
[2019-05-10] MEDS ORDERED: ISOVUE-370 76% 100ML VIAL (Q9967) As Ordered ONE (15:57)
--- NOTE | 2019-05-10 16:35 | REP ---
CT face: 05/10/2019. Indication: Facial swelling. Abscess suspected clinically. Comparison: None. Technique: Axial CT images of the face were obtained following the IV administration of 75 ml Isovue 370. Coronal and sagittal reconstructions were provided. Findings: There is no low attenuating fluid collection to suggest abscess. No significant inflammatory sequelae are present. No vascular abnormalities are present. No ocular, intraorbital or intracranial abnormalities are detected. The paranasal sinuses and mastoid air cells are clear. No enhancing pathology is detected. Impression: No facial soft tissue abscess or additional significant acute pathology. Electronically Signed by Miki Weeks DO 05/10/2019 04:26 P
[2019-05-10] MEDS ORDERED: NORC1TAB7 PO (17:19)
[2019-05-10 17:23] VITALS: BP 127/67
== END 2019-05-10 17:38 | disposition home or self-care (01) ==
LOC: M ED 14:38
DX: K04.7 Periapical abscess without sinus (principal); F31.9 Bipolar disorder, unspecified; F43.10 Post-traumatic stress disorder, unspecified; Z79.899 Other long term (current) drug therapy; Z88.0 Allergy status to penicillin; Z88.1 Allergy status to other antibiotic agents
CPT/HCPCS: 36415; 70487; 80047; 83605; 84702; 85025; 99284; Q9967

== ENCOUNTER → 2019-10-18 | Outpatient (REF) | payer OTHER ==
[~2019-10-18] MED LIST changes: +IBUP80TA; +NORC1TAB7 PO; +tylenol
[2019-10-19 03:30] LABS: APPEARANCE, URINE CLEAR (CLEAR); BACTERIA, URINE AUTO 1+ (NEGATIVE); BILIRUBIN, URINE AUTO NEGATIVE (NEGATIVE); BLOOD, URINE BLOOD NEGATIVE (NEGATIVE); COLOR, URINE STRAW (YELLOW); GLUCOSE, URINE (UA) AUTO NEGATIVE (NEGATIVE); KETONE, URINE AUTO NEGATIVE (NEGATIVE); LEUKOCYTE ESTERASE, URINE AUTO NEGATIVE (NEGATIVE); NITRITE, URINE AUTO NEGATIVE (NEGATIVE); PROTEIN, URINE AUTO NEGATIVE (NEGATIVE); RBC, URINE AUTO 0 /HPF (0-3); SPECIFIC GRAVITY URINE AUTO 1.004 (1.002-1.035); SQUAMOUS EPITHELIAL CELL UR AU 3 /HPF (0-6); UROBILINOGEN, URINE AUTO 0.2 mg/dL (0.0-2.0); WBC, URINE AUTO 0 /HPF (0-3)
== END ==
LOC: M LAB REF 16:28
PROVIDERS: ATTEND Physician Assistant Medical
DX: N39.0 Urinary tract infection, site not specified (principal)

== ENCOUNTER → 2022-02-10 | Outpatient (REF) | payer OTHER ==
[~2022-02-10] MED LIST changes: +CLIN-250 PO; -CLIN300C5 PO; +OMEP-173 PO; -OMEP-218 PO
[2022-02-10 19:35] LABS: APPEARANCE, URINE MANUAL CLEAR (CLEAR); BILIRUBIN, URINE MANUAL NEGATIVE (NEGATIVE); BLOOD URINE MANUAL NEGATIVE (NEGATIVE); COLOR, URINE MANUAL LT YELLOW (YELLOW); GLUCOSE, URINE (UA) MANUAL NEGATIVE (NEGATIVE); KETONE, URINE MANUAL NEGATIVE (NEGATIVE); LEUKOCYTE ESTERASE, URINE MAN NEGATIVE (NEGATIVE); NITRITE, URINE MANUAL NEGATIVE (NEGATIVE); PH,URINE MAN 6.5 UNITS (5.0 - 7.0); PROTEIN, URINE MANUAL TRACE mg/dL (NEGATIVE); UROBILINOGEN, URINE MANUAL NORMAL (NORMAL)
== END ==
LOC: M LAB REF 16:42
PROVIDERS: ATTEND Physician Assistant
DX: N39.0 Urinary tract infection, site not specified (principal)

== ENCOUNTER → 2023-06-11 | Outpatient (CLI) | payer OTHER ==
[2023-06-11 16:23] LABS: HEMOGLOBIN 12.3 g/dl (12.0-15.5); MEAN CORPUSCULAR HEMOGLOBIN 31.2 pg (27.0-33.0); MEAN CORPUSCULAR HGB CONC 34.2 g/dl (32.0-36.5); MEAN CORPUSCULAR VOLUME 91.4 fl (80.0-96.0); PLATELET COUNT, AUTOMATED 290 10^3/uL (150-450); RED BLOOD COUNT 3.94 10^6/uL (4.00-5.40); WHITE BLOOD COUNT 13.6 10^3/uL (4.0-10.0)
[2023-06-11 17:23] LABS: HIV 1&2 SCREEN NEGATIVE (NEGATIVE)
== END ==
LOC: M PLALAB 13:51
PROVIDERS: ATTEND Advanced Practice Midwife
DX: O34.211 Maternal care for low transverse scar from previous cesarean delivery (principal); Z3A.00 Weeks of gestation of pregnancy not specified

== ENCOUNTER → 2023-07-10 | Outpatient (REF) | payer OTHER ==
[2023-07-10 19:21] LABS: CHLAMYDIA DNA AMPLIFICATION NEGATIVE (NEGATIVE); GC DNA AMPLIFICATION NEGATIVE (NEGATIVE)
== END ==
LOC: M PLALAB 15:14
PROVIDERS: ATTEND Advanced Practice Midwife
DX: O34.211 Maternal care for low transverse scar from previous cesarean delivery (principal); Z3A.00 Weeks of gestation of pregnancy not specified

== ENCOUNTER → 2023-08-14 | Outpatient (CLI) | payer OTHER | LOC: M RAD 15:25 | PROVIDERS: ATTEND Advanced Practice Midwife | DX: Z34.82 Encounter for supervision of other normal pregnancy, second trimester (principal) ==

== ENCOUNTER → 2023-09-23 | Outpatient (CLI) | payer OTHER | LOC: M WHC 08:45 | PROVIDERS: ATTEND Advanced Practice Midwife | DX: Z34.92 Encounter for supervision of normal pregnancy, unspecified, second trimester (principal); Z3A.25 25 weeks gestation of pregnancy ==

== ENCOUNTER → 2023-10-09 | Outpatient (CLI) | payer OTHER ==
[2023-10-09 13:33] LABS: HEMATOCRIT 32.3 % (36.0-47.0); HEMOGLOBIN 10.5 g/dl (12.0-15.5); MEAN CORPUSCULAR HEMOGLOBIN 31.1 pg (27.0-33.0); MEAN CORPUSCULAR HGB CONC 32.5 g/dl (32.0-36.5); MEAN CORPUSCULAR VOLUME 95.6 fl (80.0-96.0); PLATELET COUNT, AUTOMATED 258 10^3/uL (150-450); RED BLOOD COUNT 3.38 10^6/uL (4.00-5.40); WHITE BLOOD COUNT 9.3 10^3/uL (4.0-10.0)
[2023-10-09 14:47] LABS: GC DNA AMPLIFICATION NEGATIVE (NEGATIVE)
== END ==
LOC: M PLALAB 08:46
PROVIDERS: ATTEND Advanced Practice Midwife
DX: Z34.92 Encounter for supervision of normal pregnancy, unspecified, second trimester (principal)

== ENCOUNTER → 2023-10-23 | Outpatient (CLI) | payer OTHER | LOC: M LAB 08:01 | PROVIDERS: ATTEND Advanced Practice Midwife | DX: O99.810 Abnormal glucose complicating pregnancy (principal) ==

== ENCOUNTER → 2023-12-03 | Outpatient (CLI) | payer OTHER | LOC: M RAD 14:24 | PROVIDERS: ATTEND Advanced Practice Midwife | DX: O24.419 Gestational diabetes mellitus in pregnancy, unspecified control (principal); Z3A.35 35 weeks gestation of pregnancy ==

== ENCOUNTER 2023-12-05 14:52 | Emergency (ER) | payer OTHER ==
[~2023-12-05] VITALS: Ht 154.9 cm; Wt 77.8 kg
[2023-12-05 16:36] LABS: BASO % 0.3 % (0.0-1.0); EOS % 0.3 % (0.0-3.0); HEMATOCRIT 31.9 % (36.0-47.0); HEMOGLOBIN 10.4 g/dl (12.0-15.5); LYMPH # 1.6 10^3/uL (1.5-5.0); LYMPH % 17.2 % (24.0-44.0); MEAN CORPUSCULAR HEMOGLOBIN 28.5 pg (27.0-33.0); MEAN CORPUSCULAR HGB CONC 32.6 g/dl (32.0-36.5); MEAN CORPUSCULAR VOLUME 87.4 fl (80.0-96.0); MONO # 0.6 10^3/uL (0.0-0.8); MONO % 5.9 % (2.0-8.0); NEUTROPHILS # 7.2 10^3/uL (1.5-8.5); NEUTROPHILS % 75.7 % (36.0-66.0); PLATELET COUNT, AUTOMATED 259 10^3/uL (150-450); RED BLOOD COUNT 3.65 10^6/uL (4.00-5.40); WHITE BLOOD COUNT 9.5 10^3/uL (4.0-10.0)
[2023-12-05 16:58] LABS: C REACTIVE PROTEIN QUANTITATIV < 0.40 MG/DL (<1.0)
[2023-12-05 17:00] LABS: BLOOD UREA NITROGEN 10 MG/DL (9-23); CALCIUM LEVEL 8.9 MG/DL (8.5-10.1); CARBON DIOXIDE LEVEL 26 MMOL/L (20-31); CHLORIDE LEVEL 105 MMOL/L (98-107); CREATININE FOR GFR 0.35 MG/DL (0.55-1.30); GLOMERULAR FILTRATION RATE > 60.0 (>60); GLUCOSE, FASTING 79 MG/DL (60-100); SODIUM LEVEL 137 MMOL/L (136-145)
[2023-12-05 17:15] LABS: ERYTHROCYTE SEDIMENTATION RATE 54 mm/hr (0-20)
[2023-12-05 18:33] VITALS: BP 112/58; TEMP 98; O2SAT 98
== END 2023-12-05 18:34 | disposition home or self-care (01) ==
LOC: M ED 14:52
DX: M62.831 Muscle spasm of calf (principal); F41.9 Anxiety disorder, unspecified; F32.A Depression, unspecified; F43.10 Post-traumatic stress disorder, unspecified; F31.9 Bipolar disorder, unspecified; J45.909 Unspecified asthma, uncomplicated; Z88.0 Allergy status to penicillin; Z88.1 Allergy status to other antibiotic agents

== ENCOUNTER → 2023-12-11 | Outpatient (REF) | payer OTHER ==
[~2023-12-11] MED LIST changes: +ACET325C5 PO; +FERR32TA PO; +ONDA-282 PO
== END ==
LOC: M SFHCWAGY 14:56
PROVIDERS: ATTEND Specialist
DX: O24.419 Gestational diabetes mellitus in pregnancy, unspecified control (principal); Z36.85 Encounter for antenatal screening for Streptococcus B

== ENCOUNTER → 2024-01-05 | Outpatient (REF) | payer OTHER ==
[~2024-01-05] MED LIST changes: +OXYC1TAB23 PO; +PREN1TAB11 PO
[2024-01-05 15:54] LABS: APPEARANCE, URINE CLEAR (CLEAR); BACTERIA, URINE AUTO NEGATIVE (NEGATIVE); BILIRUBIN, URINE AUTO NEGATIVE (NEGATIVE); BLOOD, URINE BLOOD 3+ (NEGATIVE); COLOR, URINE YELLOW (YELLOW); GLUCOSE, URINE (UA) AUTO NEGATIVE (NEGATIVE); KETONE, URINE AUTO NEGATIVE (NEGATIVE); LEUKOCYTE ESTERASE, URINE AUTO TRACE (NEGATIVE); MUCUS, URINE SMALL (NEGATIVE); NITRITE, URINE AUTO NEGATIVE (NEGATIVE); PROTEIN, URINE AUTO NEGATIVE (NEGATIVE); RBC, URINE AUTO 97 /HPF (0-3); SPECIFIC GRAVITY URINE AUTO 1.006 (1.002-1.035); SQUAMOUS EPITHELIAL CELL UR AU 2 /HPF (0-6); UROBILINOGEN, URINE AUTO 0.2 mg/dL (0.0-2.0); WBC, URINE AUTO 12 /HPF (0-3)
== END ==
LOC: M SFHCWAGY 15:06
PROVIDERS: ATTEND Specialist
DX: R30.0 Dysuria (principal)